=== PATIENT | male | born 1995 | race Two or more races ===

== ENCOUNTER 2021-08-22 12:23 | Emergency (ER) | payer MEDICAID ==
[~2021-08-22] VITALS: Ht 180.3 cm; Wt 81.6 kg
[2021-08-22 12:34] VITALS: BP 140/86
== END 2021-08-22 14:38 | disposition home or self-care (01) ==
LOC: ER 12:23
DX: J45.909 Unspecified asthma, uncomplicated (principal); F12.10 Cannabis abuse, uncomplicated
CPT/HCPCS: 71045